=== PATIENT | male | born 1945 | race Caucasian/White ===

== ENCOUNTER 2017-07-26 15:45 | Emergency (ER) | payer MEDICARE, OTHER ==
[2017-07-26 17:37] VITALS: BP 159/81
--- NOTE | 2017-07-26 18:02 | UC ---
Throat Pain/Nasal Javad HPI - HPI Summary HPI Summary: C/O nasal congestion with occasional ear pressure. Sinus pressure without fevers sweats or chills. Occasional cough from post nasal drip. - History of Current Complaint Chief Complaint: UCRespiratory Stated Complaint: COUGH Time Seen by Provider: 07/26/17 17:42 Hx Obtained From: Patient Onset/Duration: Gradual Onset, Lasting Weeks - 12, Still Present Severity: Mild Pain Intensity: 3 Cough: Productive - of post nasal drip Associated Signs & Symptoms: Positive: Sinus Discomfort, Nasal Discharge Related History: Smoking - cigars every other week. - Epiglottits Risk Factors Epiglottis Risk Factors: Negative - Allergies/Home Medications Allergies/Adverse Reactions: Allergies Allergy/AdvReac Type Severity Reaction Status Date / Time No Known Allergies Allergy Verified 07/26/17 17:37 Home Medications: Home Medications Aspirin 325 mg PO DAILY 07/26/17 [History Confirmed 07/26/17] PMH/Surg Hx/FS Hx/Imm Hx Endocrine History: Dyslipidemia Cardiovascular History: Hypertension GI/ History: Gastroesophageal Reflux - Surgical History Surgical History: Yes Surgery Procedure, Year, and Place: Cholecystectomy, ~2000, [place]; Tonsillectomy, ~1952, [place] - Family History Known Family History: Positive: Cardiac Disease, Hypertension Negative: Respiratory Disease - Social History Occupation: Retired Lives: With Family Alcohol Use: Daily Alcohol Amount: glass of fabrizio Substance Use Type: None Smoking Status (MU): Current Some Day Smoker Type: Cigars Amount Used/How Often: 1 q 2 wks Have You Smoked in the Last Year: Yes - Immunization History Most Recent Influenza Vaccination: February 2016 Review of Systems ENT: Ear Ache, Nasal Discharge Respiratory: Cough Is Patient Immunocompromised?: No All Other Systems Reviewed And Are Negative: Yes Physical Exam Triage Information Reviewed: Yes Appearance: Well-Appearing, No Pain Distress, Obese Vital Signs: Initial Vital Signs Temp 99.8 F 07/26/17 17:32 Pulse 54 07/26/17 17:32 Resp 16 07/26/17 17:32 BP 159/81 07/26/17 17:32 Pulse Ox 97 07/26/17 17:32 Vital Signs Reviewed: Yes Eyes: Positive: Conjunctiva Inflamed ENT: Positive: Pharynx normal, Nasal congestion - with allergic changes, TMs normal Neck exam: Normal Respiratory Exam: Normal Cardiovascular Exam: Normal Musculoskeletal Exam: Normal Neurological Exam: Normal Psychological Exam: Normal Skin Exam: Normal Throat Pain/Nasal Course/Dx - Differential Dx/Diagnosis Differential Diagnosis/HQI/PQRI: Laryngitis, Pharyngitis, Sinusitis, URI Provider Diagnoses: Allergic rhinitis Discharge - Discharge Plan Condition: Stable Disposition: HOME Prescriptions: Montelukast Sodium TAB* [Singulair 10 MG TAB*] 10 mg PO BEDTIME #30 tab Patient Education Materials: Allergies (ED) Referrals: Reshma Parish PA [Primary Care Provider] - Additional Instructions: 3M filtrete furnace air filters. [email or web address] SINUS RINSE: CHECK OUT AT [employer] Saline nasal wash helps with mucous, allergies and congestion. It can be used up to twice a day or only as needed. Use lukewarm tap water. It does not have to be sterilized or distilled water. Do 1/3 on each side and snort out of both nostrils. Repeat the process with 1/6 of the bottle on each side with snorting in between to finish the solution in the bottle
== END 2017-07-26 18:29 | disposition home or self-care (01) ==
LOC: UCCORT 15:45
DX: J30.9 Allergic rhinitis, unspecified (principal); Z72.0 Tobacco use
CPT/HCPCS: 99212; G0463

== ENCOUNTER 2023-01-21 10:15 | Observation (INO) ==
[~2023-01-21 10:15] MED LIST: Buffered Lidocaine 1% SYRIN 1 ml INTRADERM ONE; Dexamethasone IV 4 MG/ML VIAL 1 ml VIAL ONE; Famotidine IV 10 MG/ML 2 ml VIAL (20 mg) IV ONE; Lactated Ringers 1000 ml BAG 1,000 ML IV SCH; Lidocaine 2% PF 5 ML VIAL ONE; Midazolam 5 mg/5 ml VIAL 1 mg/ml 5 ml VIAL (5 mg) ONE; Ondansetron 4 mg VIAL 2 MG/ML 2 ml VIAL ONE; Phenylephrine IV 10 MG/ML 1 ml VIAL ONE; Rocuronium 50 mg VIAL 10 mg/ml 5 ml VIAL (50 mg) ONE; fentaNYL 100 mcg/2 ml 50 MCG/ML VIAL ONE
[2023-01-21] MEDS ORDERED: ceFAZolin *3* GM in NS PREMIX 3 GM/100 ML BAG IV ONE (11:52)
[2023-01-21] MEDS ORDERED: Famotidine IV 10 MG/ML 2 ml VIAL (20 mg) ONE (11:52)
[2023-01-21 12:02] LABS: Rapid COVID-19 Molecular Undetected (Undetected)
[2023-01-21] MEDS ORDERED: Sugammadex 500 MG/5 ML 5 ml VIAL IV PUSH ONE (13:11)
[2023-01-21] MEDS ORDERED: Propofol 10 MG/ML 20 ML BTL ONE (13:11)
[2023-01-21] MEDS ORDERED: Rocuronium 50 mg VIAL 10 mg/ml 5 ml VIAL (50 mg) ONE (13:12)
[2023-01-21] MEDS ORDERED: Dexamethasone IV 4 MG/ML VIAL 1 ml VIAL ONE (13:14)
[2023-01-21] MEDS ORDERED: Ropivacaine 5 MG/ML 20 ML VIAL 0.5% (100 MG) ONE (14:25)
[2023-01-21] MEDS ORDERED: Sterile Water for Inj 10 ML ONE (15:07)
[2023-01-21] MEDS ORDERED: Acetaminophen IV 1 GM/100ML 1,000 MG/100 ML BAG IV ONE (15:13)
[2023-01-21] MEDS ORDERED: fentaNYL 100 mcg/2 ml 50 MCG/ML VIAL ONE ×2 (15:22→17:45)
[2023-01-21] MEDS ORDERED: Morphine 2 MG/ML SYRINGE IV PRN (15:23)
[2023-01-21] MEDS ORDERED: Ondansetron 4 mg VIAL 2 MG/ML 2 ml VIAL IV PRN (15:23)
[2023-01-21] MEDS ORDERED: Ondansetron ODT 4 mg TAB 4 MG TAB PO PRN (15:23)
[2023-01-21] MEDS ORDERED: Magnesium Hydroxide LIQ 30 ML UDC PO PRN (15:23)
[2023-01-21] MEDS ORDERED: Lactulose 30 ml UDC PO PRN (15:23)
[2023-01-21] MEDS ORDERED: Glycopyrrolate IV 0.2 MG/ML 1 ML VIAL ONE (16:08)
[2023-01-21] MEDS ORDERED: Naloxone 0.4 mg VIAL 0.4 mg/ml 1 ml VIAL IV PRN (16:24)
[2023-01-21] MEDS ORDERED: HYDROmorphone 1 MG/1 ML SYRINGE IV PRN (16:24)
[2023-01-21] MEDS: fentaNYL 100 mcg/2 ml 50 MCG/ML VIAL IV PRN ×2 (17:47→18:15)
[2023-01-21] MEDS: Lactated Ringers 1000 ml BAG 1,000 ML IV SCH (18:50)
[2023-01-21] MEDS: Magnesium Hydroxide LIQ 30 ML UDC PO SCH (21:44)
[2023-01-21] MEDS: ceFAZolin 1 GM ADVAN 1 GM in NS 0.9% 50 ML 50 ML IVPB SCH (22:51)
[2023-01-22] MEDS: Lactated Ringers 1000 ml BAG 1,000 ML IV SCH (04:54)
[2023-01-22] MEDS: ceFAZolin 1 GM ADVAN 1 GM in NS 0.9% 50 ML 50 ML IVPB SCH ×2 (06:15→14:12)
[2023-01-22 07:29] LABS: Hematocrit 35.7 % (38-53); Hemoglobin 12.4 g/dL (13.2-16.3); Mean Platelet Volume 8.9 fL (7.5-11.2); Platelet Count 195 10^3/uL (150-450)
[2023-01-22 07:43] LABS: Calcium 8.4 mg/dL (8.6-10.3); Creatinine, Serum 1.25 mg/dL (0.67-1.17); Potassium 4.4 mmol/L (3.5-5.0); eGFR CKD-EPI 59.7 (>60)
[2023-01-22] MEDS: Magnesium Hydroxide LIQ 30 ML UDC PO SCH (08:00)
[2023-01-22] MEDS ORDERED: Vitamin THERAPEUTIC TAB PO SCH (09:00)
[2023-01-22 09:56] VITALS: BP 111/65
== END 2023-01-22 14:48 | disposition home or self-care (01) ==
LOC: INTOOBSV 11:13 → AA 11:13 → SSU 18:40
PROVIDERS: ADMIT Orthopaedic Surgery Adult Reconstructive Orthopaedic Surgery; ATTEND Orthopaedic Surgery Adult Reconstructive Orthopaedic Surgery